=== PATIENT | male | born 1975 | race Caucasian/White ===

== ENCOUNTER → 2021-10-29 10:34 | Outpatient (BNVA) | payer BC, MEDICAID, SELFPAY | PROVIDERS: Referring Provider Registered Nurse; Visit Provider Specialist | DX: R20.0 Anesthesia of skin (principal); R20.2 Paresthesia of skin | CPT/HCPCS: 95908; 95909 ==

== ENCOUNTER → 2022-01-29 08:22 | Outpatient (BNVA) | payer BC, MEDICAID, SELFPAY | PROVIDERS: PCP Registered Nurse; Visit Provider Specialist | DX: M54.12 Radiculopathy, cervical region (principal) | CPT/HCPCS: 95860; 99202 ==